=== PATIENT | female | born 1960 | race American Indian/Alaskan Native ===

== ENCOUNTER 2022-03-05 08:18 | Day surgery (SDC) | payer MEDICAID ==
--- NOTE | 2022-03-05 09:46 | History and Physical Report ---
History of Present Illness Date of examination: 03/05/22 Date of admission: 03/05/2022 Chief complaint: Epigastric pain, blood in stools History of present illness: Patient is a 61-year-old female who presented in the office with a history of recurrent epigastric pain and also the onset of dark blood in stools with our recurrent gross hematochezia. She lately also has also been severely constipated. Patient presented in the office on account of the symptoms. She was evaluated as an outpatient and scheduled for upper endoscopy as well as a colonoscopy in the near future. Past History Past Medical History: anemia, diabetes, GERD, hypertension, hyperlipidemia Past Surgical History: Other (Not listed) Social history: smoking, alcohol abuse Family history: diabetes Review of Systems Constitutional: weight loss, anorexia, fatigue, weakness, malaise, poor appetite, no fever, no chills, no sweats, no night sweats Ears, nose, mouth and throat: no ear pain, no decreased hearing, no odynophagia Breasts: no deferred Cardiovascular: no chest pain, no palpitations, no syncope, no lightheadedness Respiratory: no cough, no shortness of breath Gastrointestinal: abdominal pain, nausea, constipation, change in bowel habits, hematochezia, loss of appetite, heartburn, indigestion Psychiatric: anxiety Endocrine: no cold intolerance, no heat intolerance Hematologic/Lymphatic: no easy bruising, no easy bleeding Allergic/Immunologic: no allergic rhinitis, no wheezing Exam - Constitutional General appearance: Present: no acute distress, well-nourished - EENT Eyes: Present: PERRL ENT: hearing intact, clear oral mucosa - Neck Neck: Present: supple, normal ROM - Respiratory Respiratory effort: normal Respiratory: bilateral: CTA - Cardiovascular Heart Sounds: Present: S1 & S2. Absent: rub, click - Extremities Extremities: pulses symmetrical, No edema Peripheral Pulses: within normal limits - Abdominal General gastrointestinal: Present: soft, non-tender, non-distended, normal bowel sounds Female genitourinary: Present: normal - Integumentary Integumentary: Present: clear, warm, dry - Musculoskeletal Musculoskeletal: gait normal, strength equal bilaterally - Psychiatric Psychiatric: appropriate mood/affect, intact judgment & insight - Neurologic Neurologic: CNII-XII intact, moves all extremities Assessment and Plan Epigastric pain G.I. bleed Plan: proceed with upper endoscopy.
[2022-03-05] MEDS ORDERED: SODIUM CHLORIDE 0.9% 1000 ML 1,000 ML IV SCH (10:00)
--- NOTE | 2022-03-05 10:16 | Anesthesia Consultation ---
Anesthesia Consult and Med Hx Date of service: 03/05/22 - Airway Anesthetic Teeth Evaluation: Partials (upper partial) ROM Head & Neck: Adequate Mental/Hyoid Distance: Adequate Mallampati Class: Class III Intubation Access Assessment: Possibly Difficult - Pulmonary Exam CTA: Yes - Cardiac Exam Cardiac Exam: RRR (no murmur) - Pre-Operative Health Status ASA Pre-Surgery Classification: ASA3 Proposed Anesthetic Plan: MAC - Pulmonary Hx Smoking: Yes Hx Respiratory Symptoms: No - Cardiovascular System Hx Hypertension: Yes Hx Heart Attack/AMI: No Hx Percutaneous Transluminal Coronary Angioplasty (PTCA): No Hx Cardia Arrhythmia: Yes (occasional palpitations, especially with activity) Hx Pacemaker: No Hx Internal Defibrillator: No - Central Nervous System CVA: No - Gastrointestinal Hx Gastroesophageal Reflux Disease: Yes - Endocrine Hx Renal Disease: No Hx Liver Disease: No Hx Insulin Dependent Diabetes: No Hx Non-Insulin Dependent Diabetes: No Hx Thyroid Disease: No - Hematic Hx Anemia: Yes (2/2 GI bleed; reports last Hb 7 one month ago) - Additional Comments Anesthesia Medical History Comments: No hx anesthetic complications. Patient reports frequent palpitations, especially with activity and occasional sharp right sided chest pain. There is also occasional DENNEY, but denies edema,orthopnea, PND. She denies hx TN or CHF. She is currently asymptomatic. EKG today is NSR without signs of acute TN. H/H is pending. Discussed concerns for possible underlying cardiac dysfuction vs symptomatic anemia with GI MD. Also discussed this with patient and the risks of sedation if there is unknown cardiac condition. Given no signs of acute decompensation or TN today, will proceed with planned procedure under MAC. Patient verbalized understanding. Will plan for "light" MAC and discussed with patient increased risk of awareness. Patient verbalized understanding and is in agreement with this plan.
--- NOTE | 2022-03-05 10:17 | Anesthesia Day of Surgery ---
Anesthesia Day of Surgery - Day of Surgery Patient Examined: Yes Patient H&P Reviewed: Yes Patient is NPO: Yes
[2022-03-05 10:30] LABS: Hematocrit 39.2 % (30.3-42.9); Hemoglobin 12.5 gm/dl (10.1-14.3)
[2022-03-05] MEDS ORDERED: propofoL 200 MG/20 ML VIAL IV ONE (10:43)
--- NOTE | 2022-03-05 11:18 | Operative Report ---
Operative Report Operative Report: DATE: 03/05/2022 Esophagogastroduodenoscopy with multiple mucosal biopsies. ATTENDING PHYSICIAN: John Molina M.D. GOLF [employer]SE MECHANIC: John Molina M.D. INDICATION: Patient is a 61-year-old female who presents with history of recurrent epigastric pain with also history of recurrent melena/gross hematochezia. Patient also had associated nausea and vomiting. An upper endoscopy is done to assess patient so that treatment may be directed based on the findings. CONSENT: Informed consent was obtained after the patient was advised regarding the nature of this procedure, its indications, potential benefits as well as possible complications including but not limited to bleeding, perforation, adverse reaction to medications, infection as well as cardiopulmonary complications. An informed written and verbal consent was then obtained after due opportunity was provided for questions and answers. MONITORING: Patient monitored continuously with pulse oximetry, electrocardiographic recordings as well as automatic blood pressure recordings. Patient remained stable throughout the procedure with no untoward events. PREOPERATIVE ASSESSMENT: Patient was assessed immediately prior to this procedure for capacity to tolerate moderate sedation/monitored anesthesia care. [employer] classification is 3. Mallampatti class is 2. Hyomental distance is 3. INSTRUMENT: Olympus video endoscope GIF [id number]. MEDICATIONS: Propofol given intravenously in divided doses. For details, please refer to anesthesia records. DESCRIPTION OF PROCEDURE: Patient was placed in the left lateral decubitus position, after achieving sedation, the endoscope was introduced into the esophagus and advanced under direct visualization into the stomach and then to the second portion of the duodenum. Color texture mucosa and anatomy of the upper gastrointestinal tract was carefully examined with the endoscope which was then gently withdrawn with careful inspection of all mucosa surfaces. The patient tolerated the procedure well with no complications. After completion of the examination, patient was transferred to the recovery room. The preparation was fair. The following findings were noted. FINDINGS: The proximal esophagus was normal endoscopically. The Z line was irregular 38 cm. Patient had erythema with surrounding edema with some erosions seen particularly in the gastric antrum. Biopsies of gastric antrum were obtained for histopathology. The pylorus was normal. The duodenum was normal to the second portion. No area of gross ulceration or bleeding was observed. IMPRESSION: Slightly irregular the line. Gastric antral erythema. PLAN: Continue treatment with proton pump inhibitors Follow pathology report and direct treatment additionally. Evaluate patient further with colonoscopy.
--- NOTE | 2022-03-05 14:52 | Post Anesthesia Evaluation ---
- Post Anesthesia Evaluation Patient Participated: Yes Airway Patent: Yes Stable Respiratory Function: Yes Nausea/Vomiting: No Temp > 96.8F: Yes Pain Manageable: Yes Adequeate Hydration: Yes Anesthesia Complications: No Other Comments: Discussed with patient that H/H were normal. Again advised that palpitations and other symptoms should be addressed with her PCP as soon as possible as they could indicate serious medical condition. Patient verbalized understanding.
[2022-03-05 16:04] VITALS: BP 136/75
--- NOTE | 2022-03-06 22:28 | Electrocardiograph Report ---
[facility] Test Date: 2022-03-05 Test Time: 10:04:40 Pat Name: EVERETTE GENTILE Department: Room: Gender: F Plate Conditioner: LEOBARDO : 1960 Requested By: SCOTTY CORTEZ Order Number: [id number] Reading MD: Adina Calderon Measurements Intervals [place] Rate: 74 P: 62 KS: 174 QRS: 6 QRSD: 79 T: 42 QT: 374 QTc: 416 Interpretive Statements Sinus rhythm No previous ECG available for comparison Electronically Signed On 03-06-2022 22:27:51 EDT by Adina Calderon
== END 2022-03-05 11:30 | disposition home or self-care (01) ==
LOC: GIO 08:18
PROVIDERS: ATTEND Internal Medicine Gastroenterology
DX: R10.13 Epigastric pain (principal); K92.1 Melena; R11.2 Nausea with vomiting, unspecified; K31.89 Other diseases of stomach and duodenum; I42.9 Cardiomyopathy, unspecified; I10 Essential (primary) hypertension; K21.9 Gastro-esophageal reflux disease without esophagitis; D64.9 Anemia, unspecified; F17.210 Nicotine dependence, cigarettes, uncomplicated; Z79.899 Other long term (current) drug therapy
CPT/HCPCS: 36415; 43239; 85014; 85018; 86850; 86900; 86901; 88305; 93005; J2704; J7030